=== PATIENT | male | born 1960 | race Caucasian/White ===

== ENCOUNTER → 2024-10-16 | Outpatient (CLI) | payer MEDICARE ==
[2024-10-16 10:17] LABS: Basophils # (A) 0.03 X 10*3/uL (0.00-0.10); Basophils % (A) 0.5 %; Eosinophils # (A) 0.01 X 10*3/uL (0.04-0.35); Eosinophils % (A) 0.2 %; HCT 48.2 % (39.6-50.0); HGB 16.6 g/dL (13.0-17.0); Lymphocytes # (A) 2.13 X 10*3/uL (0.90-5.00); Lymphocytes % (A) 32.7 %; MCH 32.4 pg (27.0-32.0); MCHC 34.4 g/dL (32.0-37.0); Monocytes # (A) 0.62 X 10*3/uL (0.20-1.00); Monocytes % (A) 9.5 %; NRBC Per 100 WBC 0 X 10*3/uL (0.00-0.01); Neutrophils % (A) 56.8 %; Platelet Count 187 X 10*3/uL (140-440); RBC 5.13 X 10*6/uL (4.40-5.60); RDW 11.9 % (11.5-14.5); WBC 6.51 X 10*3/uL (4.50-10.00)
[2024-10-16 10:49] LABS: Blood Urea Nitrogen 11.8 mg/dL (9.0-27.0); Chloride 99 mmol/L (96-109); Chol/HDL Ratio 3.94 Ratio; Glucose 315 mg/dL (70-110); LDL Cholesterol,Calculated 166.4 mg/dL (0.0-131.0); Potassium 4.4 mmol/L (3.5-5.5); Sodium 137 mmol/L (135-145); VLDL Calculation 14.24 mg/dL (5.00-40.00)
[2024-10-16 10:50] LABS: ALT 30 U/L (10-49); AST 23 U/L (14-35); Albumin 4.5 g/dL (3.8-4.9); Albumin/Globulin Ratio 1.67 Ratio (1.60-3.17); Alkaline Phosphatase 82 U/L (41-126); Calcium 9.6 mg/dL (8.7-10.3); Carbon Dioxide 25.7 mmol/L (21.6-31.8); Globulin 2.7 g/dL (1.6-3.3); Prostate Specific Antigen 1.35 ng/mL (0.000-4.500); T4, Free (Free Thyroxine) 1.16 ng/dL (0.80-1.80); Total Bilirubin 0.8 mg/dL (0.3-1.2); Total Protein 7.2 g/dL (6.2-8.2)
== END | disposition home or self-care (01) ==
LOC: LABWHC1 07:03
PROVIDERS: ATTEND Family Medicine
DX: Z12.5 Encounter for screening for malignant neoplasm of prostate (principal); E03.9 Hypothyroidism, unspecified; E55.9 Vitamin D deficiency, unspecified; R63.4 Abnormal weight loss; Z82.49 Family history of ischemic heart disease and other diseases of the circulatory system
CPT/HCPCS: 36415; 80053; 80061; 82306; 84153; 84439; 84443; 85025